=== PATIENT | male | born 1960 | race Hispanic/Latino ===

== ENCOUNTER 2021-09-20 14:38 | Emergency (ER) | payer SELFPAY ==
[2021-09-20] MEDS ORDERED: TRAMADOL HCL 50 MG TAB ONE (15:20)
[2021-09-20] MEDS ORDERED: ACETAMINOPHEN 500 MG TAB ONE (15:20)
--- NOTE | 2021-09-20 15:56 | RAD REPORT ---
EXAM DESCRIPTION: RAD - Shoulder Right 2 View - 09/20/2021 3:38 pm CLINICAL HISTORY: PAIN COMPARISON: No comparisons FINDINGS: High-riding humeral head is present likely indicating underlying rotator cuff pathology. S light widening of the AC joint is present, likely chronic. No fracture or dislocation.
--- NOTE | 2021-09-20 16:09 | RAD REPORT ---
EXAM DESCRIPTION: CT - CTHCSPWOC - 09/20/2021 4:00 pm CLINICAL HISTORY: Trauma, head and neck injury. head injury COMPARISON: No comparisons TECHNIQUE: Axial 5 mm thick images of the head were obtained. Axial 2 mm thick images of the cervical spine were obtained with sagittal and coronal reconstruction images generated and reviewed. All CT scans are performed using dose optimization technique as appropriate and may include automated exposure control or mA/KV adjustment according to patient size. FINDINGS: CT HEAD WITHOUT CONTRAST: No acute hemorrhage, hydrocephalus or extra-axial collection is identified.No areas of brain edema or midline shift. Moderate left maxillary sinus mucoid opacification.The calvarium is intact. CT CERVICAL SPINE WITHOUT CONTRAST: No fracture or subluxation.Multilevel degenerative spondylosis is present. Prominent disc herniation suspected C3-4 and C6-7.No prevertebral soft tissues swelling is identified. IMPRESSION: No acute intracranial or cervical spine findings. Moderate cervical spondylosis.
--- NOTE | 2021-09-20 16:32 | ER ---
Nurse's Notes [facility] Name: Kelvin Boyer Age: 60 yrs Sex: Male : 1960 Arrival Date: 09/20/2021 Time: 14:40 Bed 9 Private MD: Diagnosis: Contusion of unspecified part of head, initial encounter;Contusion of unspecified part of neck, initial encounter;Contusion of right shoulder Presentation: 09/20 14:43 Chief complaint: Patient states: patient states he was working in the garage when ap3 sheetrock fell onto his head. patient denies LOC, and reports a brief moment of feeling dizzy. Coronavirus screen: At this time, the client does not indicate any symptoms associated with coronavirus-19. Coronavirus screen:. Ebola Screen: No symptoms or risks identified at this time. Mechanism of Injury: The problem was sustained at home, resulted from falling object. Initial Sepsis Screen: Does the patient meet any 2 criteria? No. Patient's initial sepsis screen is negative. Does the patient have a suspected source of infection? No. Patient's initial sepsis screen is negative. Risk Assessment: Do you want to hurt yourself or someone else? Patient reports no desire to harm self or others. 14:43 Method Of Arrival: Ambulatory ap3 14:43 Acuity: LISSY 4 ap3 14:46 Onset of symptoms was September 20, 2021 at 14:00. ap3 Triage Assessment: 14:45 General: Appears in no apparent distress. Behavior is calm, cooperative. Pain: ap3 Complains of pain in head Pain currently is 8 out of 10 on a pain scale. Pain began suddenly, 30 min ago. Neuro: Level of Consciousness is awake, alert, obeys commands, Oriented to person, place, time, situation, Appropriate for age Moves all extremities. Gait is steady, Speech is normal, Facial symmetry appears normal, Reports dizziness, but has resolved. Cardiovascular: Patient's skin is warm and dry. Respiratory: Airway is patent Respiratory effort is even, unlabored, Respiratory pattern is regular, symmetrical. Historical: - Allergies: 14:45 No Known Allergies; ap3 - Home Meds: 14:45 None [Active]; ap3 - PMHx: 14:45 None; ap3 - Immunization history:: Client reports having NOT received the Covid vaccine. - Social history:: Smoking status: Patient reports the use of cigarette tobacco products, smokes one-half pack cigarettes per day. Screenin:46 Abuse screen: Denies threats or abuse. Nutritional screening: No deficits noted. ap3 Tuberculosis screening: No symptoms or risk factors identified. 15:12 Fall Risk None identified. ld1 Assessment: 15:12 General: Appears in no apparent distress. comfortable, Behavior is calm, cooperative, ld1 appropriate for age. Pain: Complains of pain in face and neck Pain does not radiate. Pain currently is 8 out of 10 on a pain scale. Quality of pain is described as sharp, throbbing, Pain began 1 hour ago. Is continuous. Neuro: Level of Consciousness is awake, alert, obeys commands, Oriented to person, place, time, situation. Cardiovascular: Capillary refill < 3 seconds Patient's skin is warm and dry. Respiratory: Airway is patent. GI: No signs and/or symptoms were reported involving the gastrointestinal system. : No signs and/or symptoms were reported regarding the genitourinary system. EENT: No signs and/or symptoms were reported regarding the EENT system. Derm: No signs and/or symptoms reported regarding the dermatologic system. Musculoskeletal: Reports pain in face and neck. Vital Signs: 14:43 BP 140 / 74; Pulse 73; Resp 16; Temp 97.7; Pulse Ox 100% ; Weight 72.57 kg; Height 5 ap3 ft. 6 in. (167.64 cm); Pain 8/10; 15:12 BP 122 / 76; Pulse 68; Resp 18; Pulse Ox 98% on R/A; Pain 8/10; ld1 14:43 Body Mass Index 25.82 (72.57 kg, 167.64 cm) ap3 [place] Coma Score: 14:43 Eye Response: spontaneous(4). Verbal Response: oriented(5). Motor Response: obeys ap3 commands(6). Total: 15. 15:15 Eye Response: spontaneous(4). Verbal Response: oriented(5). Motor Response: obeys cp commands(6). Total: 15. ED Course: 14:40 Patient arrived in ED. as 14:44 John Hammonds PA is PHCP. cp 14:44 John Devine MD is Attending Physician. cp 14:45 Triage completed. ap3 14:46 Arm band placed on right wrist. ap3 14:56 Rosette Ortiz, RN is Primary Nurse. ld1 15:12 Patient has correct armband on for positive identification. Bed in low position. Call ld1 light in reach. Side rails up X2. Pulse ox on. NIBP on. Door closed. Noise minimized. 15:12 No provider procedures requiring assistance completed. ld1 15:40 XRAY Shoulder RIGHT 2 view In Process Unspecified. EDMS 16:01 CT Head C Spine In Process Unspecified. EDMS 17:03 Patient did not have IV access during this emergency room visit. ld1 Administered Medications: 15:18 Drug: Tylenol 1000 mg Route: PO; ld1 15:18 Drug: UltRAM (traMADol) 50 mg Route: PO; ld1 Medication: 17:03 VIS not applicable for this client. ld1 Outcome: 16:31 Discharge ordered by MD. cp 17:02 Discharged to home ambulatory, with family. ld1 17:02 Condition: stable 17:02 Discharge instructions given to patient, family, Instructed on discharge instructions, follow up and referral plans. medication usage, Demonstrated understanding of instructions, follow-up care, medications, Prescriptions given X 2. 17:03 Patient left the ED. ld1 Signatures: Dispatcher [employer] EDMS Alissa Duncan Corey, PA PA cp Prokisch, Amanda, RN RN ap3 Rosette Ortiz, RN RN ld1
--- NOTE | 2021-09-20 16:32 | EDPHYS ---
Physician Documentation [facility] Name: Kelvin Boyer Age: 60 yrs Sex: Male : 1960 Arrival Date: 09/20/2021 Time: 14:40 Bed 9 Private MD: ED Physician John Devine HPI: 09/20 15:15 This 60 yrs old Male presents to ER via Ambulatory with complaints of Head cp Injury-Adult. 15:15 The patient or guardian reports injury. The complaints affect the top of head. Context cp of injury: The problem was sustained at home, sheet rock that fell from ceiling. Onset: The symptoms/episode began/occurred today. Associated signs and symptoms: Loss of consciousness: This patient did not experience any loss of consciousness. Pertinent positives: neck pain, right shoulder pain, Pertinent negatives: vomiting, weakness in extremities. Severity of symptoms: in the emergency department the symptoms are unchanged, despite home interventions. Historical: - Allergies: 14:45 No Known Allergies; ap3 - Home Meds: 14:45 None [Active]; ap3 - PMHx: 14:45 None; ap3 - Immunization history:: Client reports having NOT received the Covid vaccine. - Social history:: Smoking status: Patient reports the use of cigarette tobacco products, smokes one-half pack cigarettes per day. ROS: 15:20 Constitutional: Negative for body aches, chills, fever, poor PO intake. cp 15:20 Eyes: Negative for injury, pain, redness, and discharge. cp 15:20 Neck: Positive for pain with movement, pain at rest, of the right side of neck. 15:20 Cardiovascular: Negative for chest pain, edema, palpitations. 15:20 Respiratory: Negative for cough, shortness of breath, wheezing. 15:20 Back: Negative for pain at rest, pain with movement. 15:20 MS/extremity: Positive for pain, of the right shoulder. 15:20 Neuro: Positive for headache, Negative for altered mental status, dizziness, loss of consciousness, weakness. 15:20 All other systems are negative. cp Exam: 15:25 Constitutional: The patient appears in no acute distress, alert, awake, cp non-diaphoretic, non-toxic, well developed, well nourished. 15:25 Head/face: Exam is negative for hematoma, swelling. cp 15:25 Eyes: Periorbital structures: appear normal, Pupils: equal, round, and reactive to light and accomodation, Extraocular movements: intact throughout, Conjunctiva: normal, no exudate, no injection, Sclera: no appreciated abnormality, Lids and lashes: appear normal, bilaterally. 15:25 ENT: External ear(s): are unremarkable, Nose: is normal, Mouth: Lips: moist, Oral mucosa: moist, Posterior pharynx: Airway: no evidence of obstruction, patent. 15:25 Neck: External neck: swelling, is not appreciated, tenderness, that is mild, right lateral neck, ROM/movement: limited range of motion, is not appreciated, nuchal rigidity, is not appreciated. 15:25 Chest/axilla: Inspection: normal, Palpation: is normal, no crepitus, no tenderness. 15:25 Cardiovascular: Rate: normal, Rhythm: regular, Pulses: Pulses are 2+ in right radial artery and left radial artery. 15:25 Respiratory: the patient does not display signs of respiratory distress, Respirations: cp normal, no use of accessory muscles, no retractions, labored breathing, is not present, Breath sounds: are clear throughout, no decreased breath sounds, no stridor, no wheezing. 15:25 Abdomen/GI: Exam negative for discomfort, distension, guarding, Inspection: abdomen appears normal. 15:25 Back: pain, that is mild, of the right trapezius and right scapular area, ROM is normal, vertebral tenderness, is not appreciated. 15:25 Musculoskeletal/extremity: Extremities: noted in the right shoulder: tenderness, There is no evidence of decreased ROM, deformity. 15:25 Neuro: Orientation: to person, place \T\ time. Mentation: is normal, Motor: moves all cp fours, strength is normal, Sensation: is normal. Vital Signs: 14:43 BP 140 / 74; Pulse 73; Resp 16; Temp 97.7; Pulse Ox 100% ; Weight 72.57 kg; Height 5 ap3 ft. 6 in. (167.64 cm); Pain 8/10; 15:12 BP 122 / 76; Pulse 68; Resp 18; Pulse Ox 98% on R/A; Pain 8/10; ld1 14:43 Body Mass Index 25.82 (72.57 kg, 167.64 cm) ap3 [place] Coma Score: 14:43 Eye Response: spontaneous(4). Verbal Response: oriented(5). Motor Response: obeys ap3 commands(6). Total: 15. 15:15 Eye Response: spontaneous(4). Verbal Response: oriented(5). Motor Response: obeys cp commands(6). Total: 15. MDM: 14:51 Patient medically screened. chavez 15:15 Differential diagnosis: Contusion of head, Hematoma on head, Laceration of Intracranial cp bleed- Concussion without LOC. cerebral contusion, fracture. 16:30 Data reviewed: vital signs, nurses notes, radiologic studies, CT scan, plain films. cp 16:30 Counseling: I had a detailed discussion with the patient and/or guardian regarding: the cp historical points, exam findings, and any diagnostic results supporting the discharge/admit diagnosis, radiology results, the need for outpatient follow up, a family practitioner, to return to the emergency department if symptoms worsen or persist or if there are any questions or concerns that arise at home. Response to treatment: the patient's symptoms have markedly improved after treatment, and as a result, I will discharge patient. ED course: VSS. Radiology studies negative for acute trauma. Will discharge to home for continued monitoring. 09/20 15:10 Order name: CT Head C Spine; Complete Time: 16:12 09/20 15:10 Order name: XRAY Shoulder RIGHT 2 view; Complete Time: 16:12 09/20 16:13 Interpretation: Reviewed. cp Administered Medications: 15:18 Drug: Tylenol 1000 mg Route: PO; ld1 15:18 Drug: UltRAM (traMADol) 50 mg Route: PO; ld1 Disposition Summary: 09/20/21 16:31 Discharge Ordered Location: Home cp Problem: new cp Symptoms: have improved cp Condition: Stable cp Diagnosis - Contusion of unspecified part of head, initial encounter cp - Contusion of unspecified part of neck, initial encounter cp - Contusion of right shoulder cp Followup: cp - With: Private Physician - When: 1 - 2 days - Reason: Worsening of condition Discharge Instructions: - Discharge Summary Sheet cp - Head Injury, Adult cp - Shoulder Pain cp - Neck Contusion cp - Shoulder Range of Motion Exercises cp Forms: - Medication Reconciliation Form cp - Thank You Letter cp - Antibiotic Education cp - Prescription Opioid Use cp Prescriptions: - Cyclobenzaprine 10 mg Oral Tablet - take 1 tablet by ORAL route every 8 hours As needed; 20 tablet; Refills: 0, cp Product Selection Permitted - Diclofenac Sodium 75 mg Oral tablet,delayed release (DR/EC) - take 1 tablet by ORAL route 2 times per day; 20 tablet; Refills: 0, Product cp Selection Permitted Signatures: Dispatcher [employer] John Newmna MD MD cha Page, Corey, PA PA cp Prokisch, Amanda RN RN ap3 Rosette Ortiz RN RN ld1
[2021-09-20 17:21] VITALS: TEMP 97.7
[2021-09-20 17:23] VITALS: BP 122/76; O2SAT 98
== END 2021-09-20 17:03 | disposition home or self-care (01) ==
LOC: ER 14:38
DX: S00.83XA Contusion of other part of head, initial encounter (principal); S10.93XA Contusion of unspecified part of neck, initial encounter; S40.011A Contusion of right shoulder, initial encounter; F17.210 Nicotine dependence, cigarettes, uncomplicated
CPT/HCPCS: 70450; 72125; 99284